=== PATIENT | male | born 1995 | race Caucasian/White ===

== ENCOUNTER 2016-05-05 14:01 | Emergency (ER) | payer OTHER ==
--- NOTE | 2016-05-05 14:34 | ER Document Report ---
ED Medical Screen (RME) - General Chief Complaint: Thumb Injury Stated Complaint: THUMB INJURY Notes: Patient states he fell off a tractor injuring his right thumb. Thinks it is either broken or dislocated. Injury happened just prior to arrival. I have greeted and performed a rapid initial assessment of this patient. A comprehensive ED assessment and evaluation of the patient, analysis of test results and completion of the medical decision making process will be conducted by additional ED providers. - Related Data Allergies/Adverse Reactions: No Known Allergies Allergy (Unverified 05/05/16 14:30) Physical Exam - Vital signs Vitals: Temp Pulse Resp BP Pulse Ox 98.1 F 96 16 128/59 H 97 05/05/16 14:05 05/05/16 14:05 05/05/16 14:05 05/05/16 14:05 05/05/16 14:05 - Extremities Notes: Pain on palpation is to distal right thumb. Able to move thumb from the base. Neurovascular intact. Course - Vital Signs Vital signs: Temp Pulse Resp BP Pulse Ox 98.1 F 96 16 128/59 H 97 05/05/16 14:05 05/05/16 14:05 05/05/16 14:05 05/05/16 14:05 05/05/16 14:05
[2016-05-05] MEDS ORDERED: LIDOCAINE 1% INJ-PF (10 MG/ML) 30 ML SDV INJ ONE (17:24)
[2016-05-05] MEDS ORDERED: LIDOCAINE 1% INJ-PF (10 MG/ML) 30 ML SDV ONE (17:28)
--- NOTE | 2016-05-05 17:39 | ER Document Report ---
ED Hand/Wrist Injury - General Chief Complaint: Thumb Injury Stated Complaint: THUMB INJURY Time seen by provider: 17:26 Mode of Arrival: Ambulatory Information source: Patient Notes: 21-year-old male presents to ED for right thumb injury and left knee injury after falling off of a tractor just prior to arrival. TRAVEL OUTSIDE OF THE [place] IN LAST 30 DAYS: No - HPI Injury to: Arm - Abrasions to the left arm contusion to the left knee with abrasions, Thumb - Dislocation of the DIP right Onset: Just prior to arrival Where: [place] Timing: Still present - Fell off of a tractor Quality of pain: Sharp, Throbbing Severity: Moderate Pain Level: 4 Context: Other - Fell off of a tractor - Related Data Allergies/Adverse Reactions: No Known Allergies Allergy (Unverified 05/05/16 14:30) Past Medical History - General Information source: Patient - Social History Smoking Status: Never Smoker Cigarette use (# per day): No Chew tobacco use (# tins/day): No Smoking Education Provided: No Frequency of alcohol use: None Drug Abuse: None Lives with: Family Family History: Hypertension Patient has suicidal ideation: No Patient has homicidal ideation: No - Past Medical History Cardiac Medical History: Reports: None Pulmonary Medical History: Reports: None EENT Medical History: Reports: None Endocrine Medical History: Reports: None Renal/ Medical History: Reports: None Malignancy Medical History: Reports None GI Medical History: Reports: None Musculoskeltal Medical History: Reports Hx Musculoskeletal Trauma Skin Medical History: Reports None Psychiatric Medical History: Reports: None Traumatic Medical History: Reports: Hx Fractures - Clavicle Infectious Medical History: Reports: None Past Surgical History: Reports: Hx Orthopedic Surgery - Repair of Clavicle - Immunizations Immunizations up to date: Yes Hx Diphtheria, Pertussis, Tetanus Vaccination: Yes - 05/05/2016 Review of Systems - Review of Systems Constitutional: No symptoms reported EENT: No symptoms reported Cardiovascular: No symptoms reported Respiratory: No symptoms reported Gastrointestinal: No symptoms reported Genitourinary: No symptoms reported Male Genitourinary: No symptoms reported Musculoskeletal: Joint pain - Swelling to left knee dislocated right thumb, Joint swelling, Other - Dislocated right thumb Skin: Other - Abrasions to left upper arm and left knee Hematologic/Lymphatic: No symptoms reported Neurological/Psychological: No symptoms reported -: Yes All other systems reviewed and negative Physical Exam - Vital signs Vitals: Temp Pulse Resp BP Pulse Ox 98.1 F 96 16 128/59 H 97 05/05/16 14:05 05/05/16 14:05 05/05/16 14:05 05/05/16 14:05 05/05/16 14:05 Interpretation: Normal - General General appearance: Appears well, Alert - HEENT Head: Normocephalic, Atraumatic Eyes: Normal Pupils: PERRL - Respiratory Respiratory status: No respiratory distress Chest status: Nontender Breath sounds: Normal Chest palpation: Normal - Cardiovascular Rhythm: Regular Heart sounds: Normal auscultation Murmur: No - Abdominal Inspection: Normal Distension: No distension Bowel sounds: Normal Tenderness: Nontender Organomegaly: No organomegaly - Back Back: Normal, Nontender - Extremities General upper extremity: Normal color, Normal temperature General lower extremity: Normal inspection, Normal color, Normal ROM, Normal temperature, Normal weight bearing. No: Dominique's sign Arm: Abrasion, Ecchymosis Hand: Tender, Dislocation - Right DIP thumb, Ecchymosis, No evidence of human bite, No evidence of FB, Swelling - ) Knee: Tender, Abrasion, Pain with ROM, Other - Swelling to left knee - Neurological Neuro grossly intact: Yes Cognition: Normal Orientation: AAOx4 Rylan Coma Scale Eye Opening: Spontaneous Rylan Coma Scale Verbal: Oriented Rylan Coma Scale Motor: Obeys Commands [place] Coma Scale Total: 15 Speech: Normal Motor strength normal: LUE, RUE, LLE, RLE Sensory: Normal - Psychological Associated symptoms: Normal affect, Normal mood - Skin Skin Temperature: Warm Skin Moisture: Dry Skin Color: Normal Location of irregularity: Extremities - Abrasions to left arm and left knee Irregularity with: Swelling - Left knee and right, Tenderness - Left knee right thumb and left upper arm Course - Re-evaluation Re-evalutation: 05/05/16 19:33 Discussed pre-and post reduction x-rays with patient and family. Written reports and CD of x-rays given to patient for follow-up in [place]. Patient was given a digital block to the right thumb prior to reduction of the dislocation. Traction was applied to distal end of the thumb. Joint hyperextended until it was back in place. The nail was re-x-rayed which showed it was in good position. The and finger splint applied. Patient given instructions to leave splint on for 24-48 hours and then do range of motion to the thumb gently. Patient was given prescriptions for ibuprofen and Flushing. Flushing was given in the emergency room for pain. Patient given name and number of local orthopedic to follow-up also instructed to follow-up with his doctor in [place]. - Vital Signs Vital signs: Temp Pulse Resp BP Pulse Ox 98.5 F 72 14 112/50 L 100 05/05/16 18:09 05/05/16 18:09 05/05/16 18:09 05/05/16 18:09 05/05/16 18:09 - Diagnostic Test Radiology reviewed: Image reviewed, Reports reviewed Procedures - Immobilization Right Finger Thumb Immobilizer type: Finger splint (Static) Performed by: PCT Post-Proc Neuro Vasc Exam: Normal Alignment checked and good: Yes - Joint Reduction/Fracture Care Right Distal Finger Thumb Time completed: 17:35 Consent obtained: No Conscious sedation: No Pre-procedure NV exam: Yes Fracture: Closed Post-procedure NV exam: Yes Post-reduction x-ray: Joint reduced, No fracture seen Reduction attempts: 1 Complications: No Discharge - Discharge Clinical Impression: Dislocation of distal interphalangeal joint of right thumb Qualifiers: Encounter type: initial encounter Qualified Code(s): S63.144A - Dislocation of distal interphalangeal joint of right thumb, initial encounter Contusion of left knee Qualifiers: Encounter type: initial encounter Qualified Code(s): S80.02XA - Contusion of left knee, initial encounter Abrasion, left knee, initial encounter Qualifiers: Encounter type: initial encounter Qualified Code(s): S80.212A - Abrasion, left knee, initial encounter Abrasion of right arm Qualifiers: Encounter type: initial encounter Qualified Code(s): S40.811A - Abrasion of right upper arm, initial encounter Condition: Stable Disposition: HOME, SELF-CARE Additional Instructions: Dislocation You have suffered a dislocation of your joint. It has been reduced (put back in place). It will take time for the tissues around the joint to heal. The joint will be immobilized at first. If possible, elevate the injured area and apply ice packs. After healing is underway, the joint will require [id number] and strengthening exercises. The follow-up care is important in avoiding residual problems following your dislocation. If you note any numbness, muscle weakness, or severe swelling in the affected area, call the doctor or return for re-evaluation at once. Abrasions An abrasion is a scraping injury of the skin. Some scarring may result. The seriousness of an abrasion is not always obvious at first. Hidden tissue damage may be present and infection may occur despite proper care. Complete healing may take from ten days to as long as a month. The healing time depends on the depth of the abrasion, and on the amount of crushing of underlying tissues from the injury. Keep the wound and dressing clean. Do not shower or bathe the area until okayed by the doctor. If the dressing gets wet, remove it and blot the wound dry, then reapply a clean dressing. Dressings should be changed every day. Sunscreen should be used for six months after the skin is healed. If any signs of infection occur (swelling, redness, increasing tenderness, red streaks, profuse purulent drainage from the abrasion, tender lumps in the armpit or groin above the abrasion, or fever), see the doctor immediately. Contusion Your injury has resulted in a contusion -- a crushing of the deep tissues. No injury to important structures was detected during the physician's exam. Contusions vary in the amount of pain they cause, and in the length of time required for healing. Typically, the area will become bruised, and will remain painful to touch for two or three weeks. However, most patients are back to working and playing within a few days. After the initial period of rest and cold-packs, your symptoms (together with the doctor's recommendations) will determine how rapidly you can get back to full activity. Usually this means "do what feels okay, but don't do things that hurt." If re-examination was recommended, it's important to follow up as instructed. Call the doctor or return any time if pain increases, if swelling becomes severe, if you develop numbness or weakness in an injured extremity, or if any other alarming symptoms occur. Soap Cleansing Gently wash the wound daily using a mild soap (like Ivory, Phisoderm, Neutrogena). Use warm water, rubbing gently until all debris, ooze, and crusting have been washed from the wound. Allow to dry briefly (about 10 minutes) after cleaning. Repeat this cleansing at least three times a day for the first two days and then once or twice a day. Antibiotic Ointment Protection Your wounds are such that dressing them is not practical or optional. After cleansing, you should apply a thin coating of antibiotic ointment ( Bacitracin, not Neosporin) to the wounds at least three times daily. This lessens infection risk, and may decrease the amount of scarring. Use a q-tip or dull butter knife, not your finger, to apply this ointment. Any debris or ooze which builds up in the ointment should be gently rubbed off with a sterile gauze pad. Harder crusting may need to be gently scrubbed off with a clean wash cloth with soap and warm water, perhaps applying a warm, wet wash cloth to the wound for ten minutes first. Development of redness, severe itching, or blistering may mean allergy to the ointment. See the doctor. Tetanus Immunization Given You have been given an immunization against tetanus. Please record this in your records. In general, a booster is needed only once every 10 years. The tetanus shot protects against tetanus or "lockjaw," which is a complication of certain wound infections (the tetanus shot cannot protect against the actual infection). The immunization site may become warm and red due to local reaction. If this occurs, apply warm compresses and take aspirin or ibuprofen to reduce inflammation and discomfort. Return for evaluation if the reaction becomes severe. splint Precautions A splint has been placed. This will protect the area while healing begins. Your problem does NOT normally require a cast. It MUST, however, be held still! Keep the splint on ALL THE TIME until instructed to remove it by the doctor. As you begin to use the area, be careful. You shouldn't do anything which causes discomfort -- you may disturb the injury even with the splint in place. After the initial period of rest and elevation, if splint does not prevent pain when you move, come back. You may require placement of a different splint , or a cast. If there is unexpected severe pain, or numbness, discoloration, or swelling beyond the splint, you should return at once. If you feel that the splint has broken or become loose, come back. Oral Narcotic Medication You have been given a prescription for pain control. This medication is a narcotic. It's best taken with food, as nausea can result if taken on an empty stomach. Don't operate machinery or drive within six hours of taking this medication. Do not combine this medicine with alcohol, or with any medication which can cause sedation (such as cold tablets or sleeping pills) unless you get permission from the physician. Narcotics tend to cause constipation. If possible, drink plenty of fluids and eat a diet high in fiber and fruits. FOLLOW-UP CARE: If you have been referred to a physician for follow-up care, call the physician s office for an appointment as you were instructed or within the next two days. If you experience worsening or a significant change in your symptoms, notify the physician immediately or return to the Emergency Department at any time for re-evaluation. Prescriptions: Hydrocodone/Acetaminophen [Flushing 5-325 mg Tablet] 1 tab PO Q6HP PRN #14 tablet PRN Reason: Ibuprofen 600 mg PO Q6HP PRN #20 tablet PRN Reason: Referrals: KELVIN DOHERTY MD [ACTIVE STAFF] - Follow up as needed
[2016-05-05] MEDS ORDERED: DIPH/PERTUSS(ACELL)/TETANUS VAC/PF 0.5 ML SYR (>=10YO) IM ONE (17:57)
[2016-05-05] MEDS ORDERED: HYDROCODONE/ACETAMINOPHEN 5-325 MG TABLET PO ONE (17:57)
[2016-05-05 18:30] VITALS: BP 112/50
== END 2016-05-05 18:15 | disposition home or self-care (01) ==
LOC: ER 14:01
PROC: 0RSWXZZ Reposition Right Finger Phalangeal Joint, External Approach (ICD-10-PCS; principal; 2016-05-05)
DX: S63.1 Subluxation and dislocation of thumb (principal); S80.02XA Contusion of left knee, initial encounter; S40.812A Abrasion of left upper arm, initial encounter; W17.89XA Other fall from one level to another, initial encounter
CPT/HCPCS: 99283; 90471; 73140; 73130; 90715; 26775; J3490